=== PATIENT | female | born 1930 | race Caucasian/White ===

== ENCOUNTER 2018-01-08 15:51 | Emergency (ER) | payer MEDICARE, BC ==
[~2018-01-08] VITALS: Ht 160 cm; Wt 55.5 kg
[~2018-01-08 15:51] MED LIST: BENICAR HCT 12.1 TAB PO; BENICAR HCT 251 TAB PO; TYLENOL 500MG500 MG PO
[2018-01-08] MEDS ORDERED: HYDROCHLOROTHIA1 T15 PO (15:59)
[2018-01-08 18:06] VITALS: BP 122/82
== END 2018-01-08 18:04 | disposition home or self-care (01) ==
LOC: ED 15:51
DX: K59.09 Other constipation (principal); I10 Essential (primary) hypertension; Z79.899 Other long term (current) drug therapy